=== PATIENT | male | born 1960 | race Caucasian/White ===

== ENCOUNTER 2017-01-18 20:59 | Emergency (ER) | payer MEDICAID ==
[~2017-01-18] VITALS: Ht 177.8 cm; Wt 72.0 kg
[2017-01-18 21:06] VITALS: BP 131/86
[2017-01-18] MEDS ORDERED: DiphenhydrAMINE HCL 25 MG CAPSULE PO ONE (21:30)
[2017-01-18] MEDS ORDERED: DEXAMETHASONE SOD PHOS 4 MG/ML 5 ML VIAL IM ONE (21:30)
[2017-01-18 21:37] LABS: GLUCOSE,POINT OF CARE 102 MG/DL (70-110)
== END 2017-01-18 21:51 | disposition home or self-care (01) ==
LOC: EMS 21:10
DX: L30.9 Dermatitis, unspecified (principal); F29 Unspecified psychosis not due to a substance or known physiological condition; F15.10 Other stimulant abuse, uncomplicated; F17.210 Nicotine dependence, cigarettes, uncomplicated
CPT/HCPCS: 82962; 96372; 99283; 99406; J1100

== ENCOUNTER 2017-01-26 10:01 | Inpatient (IN) | payer MEDICAID ==
[~2017-01-26] VITALS: Ht 170.2 cm; Wt 64.0 kg
[2017-01-26 11:16] LABS: BASOPHILS # (AUTO) 0.03 K/uL (0.00-0.20); BASOPHILS % (AUTO) 0.4 % (0.0-2.0); EOSINOPHILS # (AUTO) 0.08 K/uL (0.00-0.70); EOSINOPHILS % (AUTO) 1.08 % (1.0-6.0); HEMOGLOBIN 16.2 g/dL (13.5-17.5); LYMPHOCYTES # (AUTO) 1.2 K/uL (1.0-4.8); LYMPHOCYTES % (AUTO) 16.6 % (22.0-44.0); MEAN CORPUSCULAR HEMOGLOBIN 30.3 pg (26.0-34.0); MEAN CORPUSCULAR HGB CONC 32.4 G/dL (31.0-37.0); MEAN CORPUSCULAR VOLUME 94 fL (80-100); MONOCYTES # (AUTO) 0.9 K/uL (0.1-1.0); MONOCYTES % (AUTO) 11.5 % (2.0-9.0); NEUTROPHILS # (AUTO) 5.2 K/uL (1.8-7.7); NEUTROPHILS % (AUTO) 70.5 % (40.0-70.0); PLATELET COUNT (AUTO) 314 K/uL (150-450); RED BLOOD CELL COUNT(AUTO) 5.35 MIL/uL (4.50-5.90); RED CELL DISTRIBUTION WIDTH 13.7 % (11.5-14.5); WHITE BLOOD COUNT (AUTO) 7.4 K/uL (4.5-11.0)
[2017-01-26 11:29] LABS: ANION GAP 6 mmol/L (8-16); CALCIUM, TOTAL 9.3 mg/dL (8.8-10.5); CARBON DIOXIDE 33 mmol/L (22-29); CHLORIDE 104 mmol/L (98-107); CREATININE 0.98 mg/dL (0.60-1.30); GLOMERULAR FILTR. RATE CALC > 60 mL/min (>60); POTASSIUM 4.5 mmol/L (3.5-5.1); SODIUM SERUM 143 mmol/L (136-145); UREA NITROGEN, BLOOD 17 mg/dL (7-18)
[2017-01-26 11:34] LABS: ALANINE AMINOTRANSFERASE 33 U/L (12-78); ALBUMIN 4.5 g/dL (3.4-5.0); ASPARTATE AMINOTRANSFERASE 20 U/L (15-37); BILIRUBIN,TOTAL 0.4 mg/dL (0.1-1.0)
[2017-01-26] MEDS ORDERED: HALOPERIDOL 5 MG TABLET PO PRN (12:00)
[2017-01-26] MEDS ORDERED: ZOLPIDEM TARTRATE 10 MG TABLET PO PRN (12:00)
[2017-01-26] MEDS ORDERED: LORazepam 2 MG TABLET PO PRN (12:00)
[2017-01-26] MEDS ORDERED: TERBINAFINE HCL 1% 30 GM CREAM TP ONE (13:30)
[2017-01-26] MEDS ORDERED: LORazepam 2 MG TABLET PO ONE (13:30)
[2017-01-26] MEDS ORDERED: HALOPERIDOL 5 MG TABLET PO ONE (13:30)
[2017-01-26] MEDS ORDERED: CloNIDine HCL 0.1 MG TABLET PO PRN (15:15)
[2017-01-26 16:00] VITALS: BP 143/83
[2017-01-26] MEDS: TERBINAFINE HCL 1% 30 GM CREAM TP SCH (17:04)
[2017-01-27] MEDS: TERBINAFINE HCL 1% 30 GM CREAM TP SCH ×2 (08:11→16:44)
[2017-01-27 08:36] VITALS: BP 119/67
[2017-01-27 16:00] VITALS: BP 120/76
[2017-01-27] MEDS: OLANZapine 5 MG TABLET PO SCH (20:54)
[2017-01-28 05:41] VITALS: BP 128/75
[2017-01-28 08:32] VITALS: BP 103/64
[2017-01-28] MEDS: TERBINAFINE HCL 1% 30 GM CREAM TP SCH ×2 (09:18→16:51)
[2017-01-28] MEDS: OLANZapine 5 MG TABLET PO SCH ×2 (09:18→20:32)
[2017-01-28 16:16] VITALS: BP 117/67
[2017-01-29 06:34] VITALS: BP 115/70
[2017-01-29] MEDS: OLANZapine 5 MG TABLET PO SCH (08:41)
[2017-01-29] MEDS: TERBINAFINE HCL 1% 30 GM CREAM TP SCH ×2 (08:41→16:30)
[2017-01-29] MEDS: LORazepam 2 MG TABLET PO PRN (08:41)
[2017-01-29 09:02] VITALS: BP 123/69
[2017-01-29 16:05] VITALS: BP 112/73
[2017-01-29] MEDS: OLANZapine 7.5 MG TABLET PO SCH (20:20)
[2017-01-30 05:28] VITALS: BP 117/75
[2017-01-30 08:07] VITALS: BP 121/77
[2017-01-30] MEDS: HALOPERIDOL 5 MG TABLET PO PRN (09:07)
[2017-01-30] MEDS: LORazepam 2 MG TABLET PO PRN ×2 (09:07→20:06)
[2017-01-30] MEDS: OLANZapine 7.5 MG TABLET PO SCH ×2 (09:07→20:06)
[2017-01-30] MEDS: TERBINAFINE HCL 1% 30 GM CREAM TP SCH ×2 (09:08→17:09)
[2017-01-30 16:00] VITALS: BP 120/72
[2017-01-31 06:14] VITALS: BP 121/69
[2017-01-31 08:07] VITALS: BP 128/64
[2017-01-31] MEDS: TERBINAFINE HCL 1% 30 GM CREAM TP SCH ×2 (08:42→17:02)
[2017-01-31] MEDS: OLANZapine 7.5 MG TABLET PO SCH ×2 (08:42→20:25)
[2017-01-31 16:00] VITALS: BP 126/69
[2017-02-01 06:44] VITALS: BP 115/85
[2017-02-01 08:38] VITALS: BP 102/58
[2017-02-01] MEDS: LORazepam 2 MG TABLET PO PRN (09:17)
[2017-02-01] MEDS: OLANZapine 7.5 MG TABLET PO SCH (09:17)
[2017-02-01] MEDS: HALOPERIDOL 5 MG TABLET PO PRN (09:17)
[2017-02-01] MEDS: TERBINAFINE HCL 1% 30 GM CREAM TP SCH ×2 (09:18→16:26)
[2017-02-01 16:00] VITALS: BP 114/80
[2017-02-01] MEDS: OLANZapine 10 MG TABLET PO SCH (20:32)
[2017-02-01] MEDS: DIVALPROEX SODIUM 500 MG DR TABLET PO SCH (20:32)
[2017-02-01] MEDS: ZOLPIDEM TARTRATE 10 MG TABLET PO PRN (20:33)
[2017-02-02 06:25] VITALS: BP 112/71
[2017-02-02 08:39] VITALS: BP 118/69
[2017-02-02] MEDS: OLANZapine 10 MG TABLET PO SCH ×2 (09:36→20:53)
[2017-02-02] MEDS: DIVALPROEX SODIUM 500 MG DR TABLET PO SCH ×2 (09:36→20:52)
[2017-02-02] MEDS: TERBINAFINE HCL 1% 30 GM CREAM TP SCH ×2 (09:36→17:08)
[2017-02-02 16:33] VITALS: BP 109/62
[2017-02-02] MEDS: ZOLPIDEM TARTRATE 10 MG TABLET PO PRN (20:53)
[2017-02-03 06:15] VITALS: BP 119/75
[2017-02-03 08:07] VITALS: BP 119/71
[2017-02-03] MEDS: DIVALPROEX SODIUM 500 MG DR TABLET PO SCH ×2 (09:46→20:29)
[2017-02-03] MEDS: OLANZapine 10 MG TABLET PO SCH ×2 (09:46→20:29)
[2017-02-03] MEDS: TERBINAFINE HCL 1% 30 GM CREAM TP SCH ×2 (09:47→16:26)
[2017-02-03 16:00] VITALS: BP 114/69
[2017-02-03] MEDS: LORazepam 2 MG TABLET PO PRN (20:29)
[2017-02-03] MEDS: ZOLPIDEM TARTRATE 10 MG TABLET PO PRN (22:37)
[2017-02-04 06:30] VITALS: BP 122/78
[2017-02-04 08:17] VITALS: BP 120/77
[2017-02-04] MEDS: TERBINAFINE HCL 1% 30 GM CREAM TP SCH ×2 (09:27→16:08)
[2017-02-04] MEDS: OLANZapine 10 MG TABLET PO SCH ×2 (09:27→20:07)
[2017-02-04] MEDS: DIVALPROEX SODIUM 500 MG DR TABLET PO SCH ×2 (09:27→20:06)
[2017-02-04 16:00] VITALS: BP 124/71
[2017-02-04] MEDS: LORazepam 2 MG TABLET PO PRN (16:08)
[2017-02-05 06:28] VITALS: BP 105/66
[2017-02-05 08:08] VITALS: BP 122/76
[2017-02-05] MEDS: DIVALPROEX SODIUM 500 MG DR TABLET PO SCH ×2 (08:49→20:31)
[2017-02-05] MEDS: OLANZapine 10 MG TABLET PO SCH ×2 (08:49→20:32)
[2017-02-05] MEDS: TERBINAFINE HCL 1% 30 GM CREAM TP SCH ×2 (08:49→16:19)
[2017-02-05 16:08] VITALS: BP 118/74
[2017-02-05] MEDS: LORazepam 2 MG TABLET PO PRN (20:32)
[2017-02-06 00:27] VITALS: BP 113/71
[2017-02-06 08:32] VITALS: BP 118/80
[2017-02-06] MEDS: TERBINAFINE HCL 1% 30 GM CREAM TP SCH ×2 (09:39→16:54)
[2017-02-06] MEDS: DIVALPROEX SODIUM 500 MG DR TABLET PO SCH ×2 (09:39→20:37)
[2017-02-06] MEDS: OLANZapine 10 MG TABLET PO SCH ×2 (09:39→20:37)
[2017-02-06 16:00] VITALS: BP 116/68
[2017-02-06] MEDS: LORazepam 2 MG TABLET PO PRN (20:37)
[2017-02-07 00:08] VITALS: BP 100/76
[2017-02-07 08:23] VITALS: BP 122/80
[2017-02-07] MEDS: DIVALPROEX SODIUM 500 MG DR TABLET PO SCH ×2 (09:09→20:06)
[2017-02-07] MEDS: TERBINAFINE HCL 1% 30 GM CREAM TP SCH ×2 (09:10→16:56)
[2017-02-07] MEDS: OLANZapine 10 MG TABLET PO SCH ×2 (09:10→20:06)
[2017-02-07 16:07] VITALS: BP 120/69
[2017-02-07] MEDS: ZOLPIDEM TARTRATE 10 MG TABLET PO PRN (22:32)
[2017-02-08 00:31] VITALS: BP 122/74
[2017-02-08 08:28] VITALS: BP 112/68
[2017-02-08] MEDS: DIVALPROEX SODIUM 500 MG DR TABLET PO SCH ×2 (09:24→20:31)
[2017-02-08] MEDS: OLANZapine 10 MG TABLET PO SCH ×2 (09:24→20:31)
[2017-02-08] MEDS: TERBINAFINE HCL 1% 30 GM CREAM TP SCH ×2 (09:25→16:33)
[2017-02-08 16:13] VITALS: BP 131/79
[2017-02-08] MEDS: ZOLPIDEM TARTRATE 10 MG TABLET PO PRN (22:19)
[2017-02-09 00:09] VITALS: BP 143/77
[2017-02-09 08:07] VITALS: BP 122/60
[2017-02-09] MEDS: TERBINAFINE HCL 1% 30 GM CREAM TP SCH ×2 (08:41→16:10)
[2017-02-09] MEDS: DIVALPROEX SODIUM 500 MG DR TABLET PO SCH ×2 (08:41→20:27)
[2017-02-09] MEDS: OLANZapine 10 MG TABLET PO SCH ×2 (08:41→20:26)
[2017-02-09 16:00] VITALS: BP 118/70
[2017-02-09] MEDS: ZOLPIDEM TARTRATE 10 MG TABLET PO PRN (22:35)
[2017-02-10 00:28] VITALS: BP 106/82
[2017-02-10 08:07] VITALS: BP 110/66
[2017-02-10] MEDS: TERBINAFINE HCL 1% 30 GM CREAM TP SCH ×2 (09:08→16:37)
[2017-02-10] MEDS: OLANZapine 10 MG TABLET PO SCH ×2 (09:08→20:10)
[2017-02-10] MEDS: DIVALPROEX SODIUM 500 MG DR TABLET PO SCH ×2 (09:08→20:10)
[2017-02-10 16:00] VITALS: BP 114/69
[2017-02-10] MEDS: ZOLPIDEM TARTRATE 10 MG TABLET PO PRN (21:11)
[2017-02-11 01:15] VITALS: BP 134/78
[2017-02-11 08:26] VITALS: BP 114/72
[2017-02-11] MEDS: OLANZapine 10 MG TABLET PO SCH ×2 (08:33→20:20)
[2017-02-11] MEDS: DIVALPROEX SODIUM 500 MG DR TABLET PO SCH ×2 (08:33→20:20)
[2017-02-11] MEDS: TERBINAFINE HCL 1% 30 GM CREAM TP SCH ×2 (08:34→16:14)
[2017-02-11 08:59] LABS: THYROID STIMULATING HORMONE 5.68 uIU/mL (0.36-3.74)
[2017-02-11 16:00] VITALS: BP 117/71
[2017-02-11] MEDS: ZOLPIDEM TARTRATE 10 MG TABLET PO PRN (22:13)
[2017-02-12 05:08] VITALS: BP 124/75
[2017-02-12] MEDS ORDERED: LEVOTHYROXINE SODIUM 25 MCG TABLET PO SCH (06:30)
[2017-02-12] MEDS: TERBINAFINE HCL 1% 30 GM CREAM TP SCH (08:11)
[2017-02-12] MEDS: DIVALPROEX SODIUM 500 MG DR TABLET PO SCH (08:11)
[2017-02-12] MEDS: OLANZapine 10 MG TABLET PO SCH (08:11)
[2017-02-12] MEDS ORDERED: DIVA500T35 PO (08:14)
[2017-02-12] MEDS ORDERED: OLAN10TA3 PO (08:14)
[2017-02-12] MEDS ORDERED: LEVO25TA9 PO (08:14)
[2017-02-12 08:42] VITALS: BP 103/69
[2017-02-13 08:13] LABS: APPEARANCE,URINE CLEAR (CLEAR); GLUCOSE, URINE (UA) NEGATIVE (NEGATIVE); KETONES,URINE NEGATIVE (NEGATIVE); LEUKOCYTE ESTERASE ,URINE NEGATIVE (NEGATIVE); OCCULT BLOOD,URINE NEGATIVE (NEGATIVE); PH,URINE 6.5 (5.0-8.0); PROTEIN,URINE NEGATIVE (NEGATIVE)
[2017-02-13 08:15] LABS: ADD UA MICROSCOPIC NO
== END 2017-02-12 15:40 | disposition home or self-care (01) | DRG 750 ==
LOC: EEVIPCON 10:04 → EMS 10:04 → B3A 13:22 → EMS 13:42 → B3A 02-11 18:50
DX: F25.0 Schizoaffective disorder, bipolar type (principal); Z59.0 Homelessness; I10 Essential (primary) hypertension; F15.90 Other stimulant use, unspecified, uncomplicated; B35.3 Tinea pedis; Z72.0 Tobacco use
CPT/HCPCS: 84439; 84443; 99285; G0480

== ENCOUNTER 2017-04-04 05:24 | Emergency (ER) | payer MEDICAID ==
[~2017-04-04] VITALS: Ht 180.3 cm; Wt 65.5 kg
[~2017-04-04 05:24] MED LIST: DIVA500T35 PO; LEVO25TA9 PO; OLAN10TA3 PO
[2017-04-04 06:52] VITALS: BP 125/67
== END 2017-04-04 07:01 | disposition home or self-care (01) ==
LOC: EMS 05:25
DX: S90.822A Blister (nonthermal), left foot, initial encounter (principal); F17.210 Nicotine dependence, cigarettes, uncomplicated; X58.XXXA Exposure to other specified factors, initial encounter; Y93.01 Activity, walking, marching and hiking; Y92.89 Other specified places as the place of occurrence of the external cause; Y99.8 Other external cause status
CPT/HCPCS: 99282

== ENCOUNTER 2017-09-11 21:13 | Emergency (ER) | payer SELFPAY ==
[~2017-09-11] VITALS: Ht 175.3 cm; Wt 79.5 kg
[2017-09-11 21:27] VITALS: BP 148/87
== END 2017-09-11 21:47 | disposition home or self-care (01) ==
LOC: EMS 21:14
DX: S90.822A Blister (nonthermal), left foot, initial encounter (principal); S90.821A Blister (nonthermal), right foot, initial encounter; F15.10 Other stimulant abuse, uncomplicated; F17.210 Nicotine dependence, cigarettes, uncomplicated; Z59.0 Homelessness; X58.XXXA Exposure to other specified factors, initial encounter; Y92.89 Other specified places as the place of occurrence of the external cause; Y93.89 Activity, other specified; Y99.8 Other external cause status
CPT/HCPCS: 99282

== ENCOUNTER 2017-09-28 17:21 | Emergency (ER) | payer SELFPAY ==
[~2017-09-28] VITALS: Ht 177.8 cm; Wt 61.0 kg
[2017-09-28] MEDS: KETOROLAC TROMETHAMINE 30 MG/ML VIAL IM ONE (19:18)
[2017-09-28 20:53] LABS: INFLUENZA TYPE A NEGATIVE FOR TYPE A (NEGATIVE); INFLUENZA TYPE B NEGATIVE FOR TYPE B (NEGATIVE)
[2017-09-28 21:22] VITALS: BP 133/91
== END 2017-09-28 21:24 | disposition home or self-care (01) ==
LOC: EMS 17:23
DX: J40 Bronchitis, not specified as acute or chronic (principal); F17.210 Nicotine dependence, cigarettes, uncomplicated
CPT/HCPCS: 71045; 87804; 96372; 99285; J1885

== ENCOUNTER 2017-10-04 16:37 | Emergency (ER) | payer SELFPAY ==
[~2017-10-04] VITALS: Ht 177.8 cm; Wt 59.1 kg
[2017-10-04 17:26] VITALS: BP 154/116
[2017-10-04] MEDS ORDERED: ATENOLOL 50 MG TABLET PO ONE (18:00)
[2017-10-04] MEDS ORDERED: LIDOCAINE HCL/PF 1% 2 ML VIAL IM ONE (18:00)
[2017-10-04] MEDS ORDERED: CefTRIAXone SODIUM 1 GM/VIAL IM ONE (18:00)
== END 2017-10-04 18:32 | disposition home or self-care (01) ==
LOC: EMS 16:38
DX: J32.9 Chronic sinusitis, unspecified (principal); F17.210 Nicotine dependence, cigarettes, uncomplicated
CPT/HCPCS: 96372; 99283; J0696; J3490

== ENCOUNTER 2018-07-23 18:32 | Emergency (ER) | payer SELFPAY ==
[~2018-07-23] VITALS: Ht 167.6 cm; Wt 65.0 kg
[2018-07-23] MEDS ORDERED: AmLODIPine BESYLATE 5 MG TABLET PO ONE (19:30)
[2018-07-23] MEDS ORDERED: LORazepam 2 MG TABLET PO ONE (19:30)
[2018-07-23 19:35] LABS: BASOPHILS % (AUTO) 0.5 % (0.0-2.0); EOSINOPHILS % (AUTO) 0.4 % (1.0-6.0); HEMATOCRIT 46.3 % (41-53); HEMOGLOBIN 16.2 g/dL (13.5-17.5); LYMPHOCYTES # (AUTO) 1.1 K/uL (1.0-4.8); LYMPHOCYTES % (AUTO) 13.7 % (22.0-44.0); MEAN CORPUSCULAR HEMOGLOBIN 31.3 pg (26.0-34.0); MEAN CORPUSCULAR HGB CONC 34.9 G/dL (31.0-37.0); MEAN CORPUSCULAR VOLUME 89 fL (80-100); MONOCYTES % (AUTO) 13.3 % (2.0-9.0); NEUTROPHILS # (AUTO) 5.6 K/uL (1.8-7.7); NEUTROPHILS % (AUTO) 72.1 % (40.0-70.0); PLATELET COUNT (AUTO) 251 K/uL (150-450); RED BLOOD CELL COUNT(AUTO) 5.17 MIL/uL (4.50-5.90); RED CELL DISTRIBUTION WIDTH 13.8 % (11.5-14.5)
[2018-07-23 19:50] LABS: ANION GAP 7 mmol/L (8-16); CARBON DIOXIDE 30 mmol/L (22-29); CHLORIDE 100 mmol/L (98-107); CREATININE 0.93 mg/dL (0.60-1.30); GLOMERULAR FILTR. RATE CALC > 60 mL/min (>60); GLUCOSE,RANDOM 107 mg/dL (70-110); POTASSIUM 3.4 mmol/L (3.5-5.1); SODIUM SERUM 137 mmol/L (136-145); UREA NITROGEN, BLOOD 16 mg/dL (7-18)
[2018-07-23 19:56] LABS: ALANINE AMINOTRANSFERASE 35 U/L (12-78); ALBUMIN 4.5 g/dL (3.4-5.0); ALKALINE PHOSPHATASE 86 U/L (46-116); ASPARTATE AMINOTRANSFERASE 37 U/L (15-37); BILIRUBIN,TOTAL 0.9 mg/dL (0.1-1.0); TOTAL PROTEIN, SERUM 7.9 g/dL (6.4-8.2)
[2018-07-23 20:14] LABS: AMPHET/METH SCREEN,URINE POSITIVE (NEGATIVE); BARBITURATE SCREEN, URINE NEGATIVE (NEGATIVE); BENZODIAZEPINES SCREEN,URINE NEGATIVE (NEGATIVE); CANNABINOID SCREEN,URINE NEGATIVE (NEGATIVE); COCAINE SCREEN,URINE NEGATIVE (NEGATIVE); METHADONE SCREEN, URINE NEGATIVE (NEGATIVE); OPIATE SCREEN,URINE NEGATIVE (NEGATIVE); PHENCYCLIDINE SCREEN,URINE NEGATIVE (NEGATIVE)
[2018-07-23] MEDS ORDERED: POTASSIUM CHLORIDE 10% 40 MEQ/30 ML LIQUID UDCUP PO ONE (20:30)
[2018-07-23 22:15] VITALS: BP 129/71
== END 2018-07-23 23:26 | disposition home or self-care (01) ==
LOC: EMS 18:33
DX: F15.10 Other stimulant abuse, uncomplicated (principal); I10 Essential (primary) hypertension; F41.9 Anxiety disorder, unspecified; F11.90 Opioid use, unspecified, uncomplicated; F17.210 Nicotine dependence, cigarettes, uncomplicated
CPT/HCPCS: 36415; 80053; 80307; 84484; 85025; 93005; 99285; 99406; G0480

== ENCOUNTER 2019-10-05 18:53 | Emergency (ER) | payer MEDICAID ==
[~2019-10-05] VITALS: Ht 182.9 cm; Wt 61.4 kg
[2019-10-05] MEDS ORDERED: ACETAMINOPHEN 500 MG TABLET PO ONE (22:00)
[2019-10-05] MEDS ORDERED: AMOXICILLIN TRIHYDRATE 250 MG CAPSULE PO ONE (22:15)
[2019-10-05 22:40] VITALS: BP 145/84
== END 2019-10-05 22:47 | disposition home or self-care (01) ==
LOC: EMS 18:54
DX: J40 Bronchitis, not specified as acute or chronic (principal); F17.210 Nicotine dependence, cigarettes, uncomplicated; I10 Essential (primary) hypertension; F15.10 Other stimulant abuse, uncomplicated; F11.90 Opioid use, unspecified, uncomplicated; Z98.890 Other specified postprocedural states
CPT/HCPCS: 99406

== ENCOUNTER 2019-12-21 21:23 | Emergency (ER) | payer MEDICAID ==
[~2019-12-21] VITALS: Ht 167.6 cm; Wt 61.4 kg
[2019-12-21] MEDS ORDERED: KETOROLAC TROMETHAMINE 30 MG/ML VIAL IM ONE (22:30)
[2019-12-22 00:36] VITALS: BP 147/99
== END 2019-12-22 00:37 | disposition home or self-care (01) ==
LOC: EMS 21:24
DX: M25.561 Pain in right knee (principal); I10 Essential (primary) hypertension; M25.552 Pain in left hip; F17.210 Nicotine dependence, cigarettes, uncomplicated; F11.90 Opioid use, unspecified, uncomplicated
CPT/HCPCS: 29505; 73564; 96372; 99285; J1885

== ENCOUNTER 2020-03-30 00:53 | Emergency (ER) | payer MEDICAID ==
[~2020-03-30] VITALS: Ht 172.7 cm; Wt 68.2 kg
[2020-03-30] MEDS ORDERED: ACETAMINOPHEN 500 MG TABLET PO ONE (01:45)
[2020-03-30 02:18] VITALS: BP 151/90
[2020-03-30 02:39] LABS: INFLUENZA TYPE A NEGATIVE FOR TYPE A (NEGATIVE); INFLUENZA TYPE B NEGATIVE FOR TYPE B (NEGATIVE); RAPID GROUP A STREP NEGATIVE (NEGATIVE)
== END 2020-03-30 03:00 | disposition home or self-care (01) ==
LOC: EMS 00:53
DX: U07.1 COVID-19 (principal); B34.9 Viral infection, unspecified; J02.9 Acute pharyngitis, unspecified; I10 Essential (primary) hypertension; F17.210 Nicotine dependence, cigarettes, uncomplicated; F11.90 Opioid use, unspecified, uncomplicated; F19.90 Other psychoactive substance use, unspecified, uncomplicated
CPT/HCPCS: 71045; 87430; 87804; 99284; 99406; U0003

== ENCOUNTER 2024-06-23 02:05 | Emergency (ER) | payer MEDICAID ==
[~2024-06-23] VITALS: Ht 180.3 cm; Wt 59.1 kg
[2024-06-23 02:09] VITALS: TEMP 97.5
[2024-06-23] MEDS ORDERED: ACET-66 PO (03:17)
[2024-06-23] MEDS ORDERED: IBUP-1554 PO (03:17)
[2024-06-23 03:30] VITALS: BP 129/68; PULSE 75; RESP 18; O2SAT 99
[2024-06-23] MEDS: IBUPROFEN 600 MG TABLET PO ONE (03:48)
[2024-06-23] MEDS: ACETAMINOPHEN 500 MG TABLET PO ONE (03:49)
== END 2024-06-23 04:09 | disposition home or self-care (01) ==
LOC: EMS 02:05
DX: S93.402A Sprain of unspecified ligament of left ankle, initial encounter (principal); I10 Essential (primary) hypertension; F15.90 Other stimulant use, unspecified, uncomplicated; F17.210 Nicotine dependence, cigarettes, uncomplicated; Z98.890 Other specified postprocedural states; X50.1XXA Overexertion from prolonged static or awkward postures, initial encounter; Y93.02 Activity, running; Y92.89 Other specified places as the place of occurrence of the external cause; Y99.8 Other external cause status
CPT/HCPCS: 99283

== ENCOUNTER 2024-10-10 17:50 | Emergency (ER) | payer SELFPAY ==
[~2024-10-10] VITALS: Ht 165.1 cm; Wt 75.0 kg
[~2024-10-10 17:50] MED LIST changes: +ACET-66 PO; -DIVA500T35 PO; +IBUP-1554 PO; -LEVO25TA9 PO; -OLAN10TA3 PO
[2024-10-10 18:02] VITALS: BP 170/103; PULSE 111; RESP 18; TEMP 97.8; O2SAT 98
== END 2024-10-10 23:30 | disposition left against medical advice (07) ==
LOC: EMS 17:50
DX: M79.642 Pain in left hand (principal); Z53.21 Procedure and treatment not carried out due to patient leaving prior to being seen by health care provider

== ENCOUNTER 2024-11-09 13:39 | Emergency (ER) | payer SELFPAY ==
[~2024-11-09] VITALS: Ht 177.8 cm; Wt 61.0 kg
[2024-11-09 13:53] VITALS: TEMP 98
[2024-11-09 15:25] LABS: BASOPHILS % (AUTO) 0.7 % (0.0-2.0); EOSINOPHILS % (AUTO) 1.2 % (1.0-6.0); HEMATOCRIT 45.6 % (41-53); HEMOGLOBIN 14.9 g/dL (13.5-17.5); MEAN CORPUSCULAR HEMOGLOBIN 30.9 pg (26.0-34.0); MEAN CORPUSCULAR HGB CONC 32.7 G/dL (31.0-37.0); MEAN CORPUSCULAR VOLUME 94 fL (80-100); MONOCYTES # (AUTO) 0.8 K/uL (0.1-1.0); MONOCYTES % (AUTO) 11.9 % (2.0-9.0); NEUTROPHILS # (AUTO) 4.7 K/uL (1.8-7.7); NEUTROPHILS % (AUTO) 71.2 % (40.0-70.0); PLATELET COUNT (AUTO) 296 K/uL (150-450); RED BLOOD CELL COUNT(AUTO) 4.83 MIL/uL (4.50-5.90); RED CELL DISTRIBUTION WIDTH 13.6 % (11.5-14.5); WHITE BLOOD COUNT (AUTO) 6.6 K/uL (4.5-11.0)
[2024-11-09 15:30] LABS: ANION GAP 5 mmol/L (8-16); CALCIUM, TOTAL 9.1 mg/dL (8.8-10.5); CARBON DIOXIDE 32 mmol/L (22-29); CHLORIDE 104 mmol/L (98-107); CREATININE 1.11 mg/dL (0.60-1.30); GLOMERULAR FILTR. RATE CALC > 60 mL/min (>60); GLUCOSE,RANDOM 104 mg/dL (70-110); SODIUM SERUM 141 mmol/L (136-145); UREA NITROGEN, BLOOD 24 mg/dL (7-18)
[2024-11-09 22:30] VITALS: BP 118/66; PULSE 99; RESP 16; O2SAT 99
[2024-11-09] MEDS: AMOX TR/POT CLAV 875 MG/125 MG TABLET PO ONE (22:42)
[2024-11-09] MEDS ORDERED: AMOX-457 PO (22:50)
== END 2024-11-09 23:06 | disposition home or self-care (01) ==
LOC: EMS 13:40
DX: L03.114 Cellulitis of left upper limb (principal); I10 Essential (primary) hypertension; F17.210 Nicotine dependence, cigarettes, uncomplicated
CPT/HCPCS: 80048; 85025; 99283